=== PATIENT | female | born 1930 | race Caucasian/White ===

== ENCOUNTER 2016-12-07 | Outpatient (CLI) | payer MEDICARE | END 2016-12-07 20:26 | disposition critical access hospital (66) | DX: R53.1 Weakness (principal) | CPT/HCPCS: A0425; A0429 ==

== ENCOUNTER 2016-12-07 20:37 | Inpatient (IN) | payer MEDICARE ==
[2016-12-07] MEDS ORDERED: cefTRIAXone 2 GM in SODIUM CHLORIDE 0.9% MINIBAG 100 ML IV STA (21:16)
[2016-12-07] MEDS ORDERED: SODIUM CHLORIDE 0.9% 1,000 ML IV ONE (21:16)
[2016-12-07] MEDS ORDERED: ACETAMINOPHEN 325 MG TABLET PO STA (21:16)
[2016-12-07] MEDS ORDERED: AZITHROMYCIN INJ 500 MG in SODIUM CHLORIDE 0.9% 250 ML IV STA (21:16)
[2016-12-07] MEDS ORDERED: cefTRIAXone 2 GM VIAL ONE (21:21)
[2016-12-07] MEDS ORDERED: ACETAMINOPHEN 325 MG TABLET PO ONE (21:21)
[2016-12-07] MEDS ORDERED: ONDANSETRON 4 MG/2 ML VIAL IVP PRN (22:26)
[2016-12-07] MEDS ORDERED: SODIUM CHLORIDE FLUSH 0.9% 10 ML SYRINGE IVP PRN (22:26)
[2016-12-07] MEDS ORDERED: ACETAMINOPHEN 325 MG TABLET PO PRN (22:26)
[2016-12-07] MEDS ORDERED: guaiFENesin 600 MG TABLET PO PRN (22:31)
[2016-12-07] MEDS ORDERED: ALBUTEROL NEB 2.5 MG/3 ML INH PRN (22:32)
[2016-12-08] MEDS: SODIUM CHLORIDE 0.9% 1,000 ML IV SCH ×2 (00:35→19:54)
[2016-12-08] MEDS ORDERED: LABETALOL 20 MG/4 ML SYRINGE IVP ONE (05:59)
[2016-12-08] MEDS ORDERED: FUROSEMIDE 20 MG/2 ML VIAL IVP STA (06:18)
[2016-12-08] MEDS: SODIUM CHLORIDE FLUSH 0.9% 10 ML SYRINGE IVP SCH ×3 (08:38→22:33)
[2016-12-08] MEDS: ENOXAPARIN 40 MG/0.4 ML SYRINGE SUBQ SCH (08:39)
[2016-12-08] MEDS: SACCHAROMYCES BOULARDII 250 MG CAPSULE PO SCH ×2 (08:39→17:51)
[2016-12-08] MEDS: POLYETHYLENE GLYCOL 3350 17 GM PACKET PO SCH (08:39)
[2016-12-08] MEDS: PANTOPRAZOLE 40 MG TABLET PO SCH (13:06)
[2016-12-08] MEDS: LEVOTHYROXINE 75 MCG TABLET PO SCH (14:31)
[2016-12-08] MEDS ORDERED: cefTRIAXone 2 GM in SODIUM CHLORIDE 0.9% MINIBAG 100 ML IV SCH ×2 (18:00→21:00)
[2016-12-08] MEDS: AZITHROMYCIN INJ 500 MG in SODIUM CHLORIDE 0.9% 250 ML IV SCH (18:46)
[2016-12-08] MEDS ORDERED: AZITHROMYCIN INJ 500 MG in SODIUM CHLORIDE 0.9% 250 ML IV SCH (22:00)
[2016-12-08] MEDS ORDERED: ASPIRIN CHEW 81 MG TABLET PO STA (22:12)
[2016-12-08] MEDS ORDERED: HEPARIN 5,000 UNIT/ML VIAL IVP ONE (22:15)
[2016-12-08] MEDS ORDERED: FUROSEMIDE 20 MG/2 ML VIAL IVP SCH (22:47)
[2016-12-09] MEDS ORDERED: PANTOPRAZOLE 40 MG TABLET PO SCH (07:00)
[2016-12-09] MEDS: LEVOTHYROXINE 75 MCG TABLET PO SCH (07:01)
[2016-12-09] MEDS: PANTOPRAZOLE 40 MG TABLET PO SCH (07:01)
[2016-12-09] MEDS: IPRATROPIUM/ALBUTEROL 3 ML NEB INH PRN ×2 (08:00→13:12)
[2016-12-09] MEDS ORDERED: CALCIUM GLUCONATE 1,000 MG in SODIUM CHLORIDE 0.9% 50 ML IV ONE (08:00)
[2016-12-09] MEDS: SODIUM CHLORIDE FLUSH 0.9% 10 ML SYRINGE IVP SCH ×3 (08:42→21:05)
[2016-12-09] MEDS ORDERED: CALCIUM CARBONATE CHEW 500 MG TABLET PO SCH (09:00)
[2016-12-09] MEDS: POTASSIUM CHLORIDE 20 MEQ TABLET PO SCH (09:40)
[2016-12-09] MEDS: CHOLECALCIFEROL 400 UNIT TABLET PO SCH (09:50)
[2016-12-09] MEDS: NEUTRA-PHOS 250 MG TABLET PO SCH ×3 (09:51→16:59)
[2016-12-09] MEDS: SACCHAROMYCES BOULARDII 250 MG CAPSULE PO SCH ×2 (09:51→16:59)
[2016-12-09] MEDS: POLYETHYLENE GLYCOL 3350 17 GM PACKET PO SCH (09:53)
[2016-12-09] MEDS: ENOXAPARIN 40 MG/0.4 ML SYRINGE SUBQ SCH (09:53)
[2016-12-09] MEDS: CEFEPIME 2 GM in SODIUM CHLORIDE 0.9% MINIBAG 100 ML IV SCH ×2 (09:58→21:04)
[2016-12-09] MEDS: METOPROLOL TARTRATE 25 MG TABLET PO SCH ×2 (11:05→21:04)
[2016-12-09] MEDS ORDERED: LORazepam 2 MG/ML SYRINGE IVP PRN (11:12)
[2016-12-09] MEDS ORDERED: MORPHINE 2 MG/ML SYRINGE IVP PRN (11:12)
[2016-12-09] MEDS ORDERED: SODIUM BICARBONATE 100 MEQ in DEXTROSE 5% 1,000 ML IV SCH (12:00)
[2016-12-09] MEDS: AZITHROMYCIN INJ 500 MG in SODIUM CHLORIDE 0.9% 250 ML IV SCH (18:33)
[2016-12-09] MEDS ORDERED: methylPREDNISolone SUCCINATE 125 MG/2 ML VIAL IVP SCH ×2 (20:00→22:00)
[2016-12-10] MEDS: methylPREDNISolone SUCCINATE 40 MG/ML VIAL IVP SCH ×3 (05:45→22:15)
[2016-12-10] MEDS: SODIUM CHLORIDE FLUSH 0.9% 10 ML SYRINGE IVP SCH ×3 (05:46→22:16)
[2016-12-10] MEDS: LEVOTHYROXINE 75 MCG TABLET PO SCH (06:01)
[2016-12-10] MEDS: PANTOPRAZOLE 40 MG TABLET PO SCH (06:02)
[2016-12-10] MEDS: CEFEPIME 2 GM in SODIUM CHLORIDE 0.9% MINIBAG 100 ML IV SCH ×2 (09:46→22:15)
[2016-12-10] MEDS: POTASSIUM CHLORIDE 20 MEQ TABLET PO SCH (09:47)
[2016-12-10] MEDS: CHOLECALCIFEROL 400 UNIT TABLET PO SCH (09:47)
[2016-12-10] MEDS: SACCHAROMYCES BOULARDII 250 MG CAPSULE PO SCH ×2 (09:47→16:52)
[2016-12-10] MEDS: CALCIUM CARBONATE CHEW 500 MG TABLET PO SCH ×2 (09:47→22:14)
[2016-12-10] MEDS: ENOXAPARIN 40 MG/0.4 ML SYRINGE SUBQ SCH (09:48)
[2016-12-10] MEDS: NEUTRA-PHOS 250 MG TABLET PO SCH ×3 (09:48→16:52)
[2016-12-10] MEDS: POLYETHYLENE GLYCOL 3350 17 GM PACKET PO SCH (09:49)
[2016-12-10] MEDS: METOPROLOL TARTRATE 25 MG TABLET PO SCH ×2 (09:49→22:14)
[2016-12-10] MEDS: AZITHROMYCIN INJ 500 MG in SODIUM CHLORIDE 0.9% 250 ML IV SCH (19:30)
[2016-12-11] MEDS: methylPREDNISolone SUCCINATE 40 MG/ML VIAL IVP SCH ×3 (06:03→21:33)
[2016-12-11] MEDS: SODIUM CHLORIDE FLUSH 0.9% 10 ML SYRINGE IVP SCH ×3 (06:05→21:34)
[2016-12-11] MEDS: LEVOTHYROXINE 75 MCG TABLET PO SCH (06:18)
[2016-12-11] MEDS: PANTOPRAZOLE 40 MG TABLET PO SCH (06:18)
[2016-12-11] MEDS: IPRATROPIUM/ALBUTEROL 3 ML NEB INH PRN ×2 (09:00→13:15)
[2016-12-11] MEDS: CEFEPIME 2 GM in SODIUM CHLORIDE 0.9% MINIBAG 100 ML IV SCH ×2 (09:24→21:34)
[2016-12-11] MEDS: POTASSIUM CHLORIDE 20 MEQ TABLET PO SCH (09:26)
[2016-12-11] MEDS: NEUTRA-PHOS 250 MG TABLET PO SCH ×3 (09:32→17:18)
[2016-12-11] MEDS: METOPROLOL TARTRATE 25 MG TABLET PO SCH ×2 (09:37→21:35)
[2016-12-11] MEDS: POLYETHYLENE GLYCOL 3350 17 GM PACKET PO SCH ×2 (09:39→13:05)
[2016-12-11] MEDS: CALCIUM CARBONATE CHEW 500 MG TABLET PO SCH ×2 (09:39→21:35)
[2016-12-11] MEDS: DOCUSATE SODIUM 250 MG CAPSULE PO ONE ×2 (09:39→12:54)
[2016-12-11] MEDS: CHOLECALCIFEROL 400 UNIT TABLET PO SCH (09:39)
[2016-12-11] MEDS: SACCHAROMYCES BOULARDII 250 MG CAPSULE PO SCH ×2 (09:39→17:18)
[2016-12-11] MEDS: SENNA 8.6 MG TABLET PO ONE ×2 (09:39→12:57)
[2016-12-11] MEDS: ENOXAPARIN 40 MG/0.4 ML SYRINGE SUBQ SCH (09:40)
[2016-12-11] MEDS: AZITHROMYCIN INJ 500 MG in SODIUM CHLORIDE 0.9% 250 ML IV SCH (19:07)
[2016-12-11] MEDS ORDERED: ASPIRIN CHEW 81 MG TABLET ONE (20:18)
[2016-12-11] MEDS ORDERED: ASPIRIN CHEW 81 MG TABLET PO SCH (20:21)
[2016-12-12] MEDS: PANTOPRAZOLE 40 MG TABLET PO SCH (06:40)
[2016-12-12] MEDS: SODIUM CHLORIDE FLUSH 0.9% 10 ML SYRINGE IVP SCH ×3 (06:41→21:36)
[2016-12-12] MEDS: LEVOTHYROXINE 75 MCG TABLET PO SCH (06:41)
[2016-12-12] MEDS ORDERED: methylPREDNISolone SUCCINATE 40 MG/ML VIAL IVP SCH (08:00)
[2016-12-12] MEDS: SACCHAROMYCES BOULARDII 250 MG CAPSULE PO SCH ×2 (08:48→16:59)
[2016-12-12] MEDS: NEUTRA-PHOS 250 MG TABLET PO SCH ×3 (08:48→16:59)
[2016-12-12] MEDS: POTASSIUM CHLORIDE 20 MEQ TABLET PO SCH (08:48)
[2016-12-12] MEDS: CHOLECALCIFEROL 400 UNIT TABLET PO SCH (08:49)
[2016-12-12] MEDS: ASPIRIN EC 81 MG TABLET PO SCH (08:49)
[2016-12-12] MEDS: METOPROLOL TARTRATE 25 MG TABLET PO SCH ×2 (08:49→21:21)
[2016-12-12] MEDS: ENOXAPARIN 40 MG/0.4 ML SYRINGE SUBQ SCH (08:50)
[2016-12-12] MEDS: CALCIUM CARBONATE CHEW 500 MG TABLET PO SCH ×2 (08:50→21:28)
[2016-12-12] MEDS: POLYETHYLENE GLYCOL 3350 17 GM PACKET PO SCH (08:50)
[2016-12-12] MEDS ORDERED: ASPIRIN CHEW 81 MG TABLET PO SCH (09:00)
[2016-12-12] MEDS ORDERED: AZITHROMYCIN 250 MG TABLET PO SCH (17:00)
[2016-12-12] MEDS ORDERED: A & D OINTMENT 5 GM PACKET TOP ONE (20:11)
[2016-12-12] MEDS: predniSONE 20 MG TABLET PO SCH (21:29)
[2016-12-12] MEDS: LISINOPRIL 5 MG TABLET PO SCH (21:29)
[2016-12-13] MEDS ORDERED: hydrALAZINE INJ 20 MG/ML VIAL IVP STA (03:12)
[2016-12-13] MEDS: SODIUM CHLORIDE FLUSH 0.9% 10 ML SYRINGE IVP SCH (06:41)
[2016-12-13] MEDS: LEVOTHYROXINE 75 MCG TABLET PO SCH (06:41)
[2016-12-13] MEDS: PANTOPRAZOLE 40 MG TABLET PO SCH (06:41)
[2016-12-13] MEDS: POLYETHYLENE GLYCOL 3350 17 GM PACKET PO SCH (08:39)
[2016-12-13] MEDS: ENOXAPARIN 40 MG/0.4 ML SYRINGE SUBQ SCH (08:41)
[2016-12-13] MEDS: NEUTRA-PHOS 250 MG TABLET PO SCH ×2 (08:41→12:10)
[2016-12-13] MEDS: SACCHAROMYCES BOULARDII 250 MG CAPSULE PO SCH (08:42)
[2016-12-13] MEDS: LISINOPRIL 5 MG TABLET PO SCH (08:42)
[2016-12-13] MEDS: POTASSIUM CHLORIDE 20 MEQ TABLET PO SCH (08:42)
[2016-12-13] MEDS: CHOLECALCIFEROL 400 UNIT TABLET PO SCH (08:42)
[2016-12-13] MEDS: ASPIRIN EC 81 MG TABLET PO SCH (08:43)
[2016-12-13] MEDS: METOPROLOL TARTRATE 25 MG TABLET PO SCH (08:43)
[2016-12-13] MEDS ORDERED: AZITHROMYCIN 250 MG TABLET PO SCH (09:00)
[2016-12-13] MEDS: predniSONE 20 MG TABLET PO SCH (09:28)
[2016-12-13] MEDS ORDERED: CALCIUM CARBONATE CHEW 500 MG TABLET PO SCH (19:00)
== END 2016-12-13 13:30 | DRG 193 ==
DX: J18.9 Pneumonia, unspecified organism (principal); J96.01 Acute respiratory failure with hypoxia; C91.10 Chronic lymphocytic leukemia of B-cell type not having achieved remission; I48.91 Unspecified atrial fibrillation; E03.9 Hypothyroidism, unspecified; Z90.710 Acquired absence of both cervix and uterus; Z85.828 Personal history of other malignant neoplasm of skin; Z88.2 Allergy status to sulfonamides; K21.9 Gastro-esophageal reflux disease without esophagitis; I11.0 Hypertensive heart disease with heart failure; I50.9 Heart failure, unspecified

== ENCOUNTER 2017-02-21 22:04 | Outpatient (CLI) | payer MEDICARE | END 2017-02-21 22:05 | disposition critical access hospital (66) | LOC: EMS 22:04 | PROVIDERS: ATTEND Surgery | DX: M25.512 Pain in left shoulder (principal); W18.30XA Fall on same level, unspecified, initial encounter; W22.8XXA Striking against or struck by other objects, initial encounter; Y92.199 Unspecified place in other specified residential institution as the place of occurrence of the external cause | CPT/HCPCS: A0425; A0429 ==

== ENCOUNTER 2017-02-21 22:19 | Emergency (ER) | payer MEDICARE ==
--- NOTE | 2017-02-21 22:43 | ED Physician Documentation ---
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 She fell and c/o left shoulder pain. The cause of the fall is not clear, but patient denies LOC, denies head injury. Review of Systems Cardiac: reports: Reviewed and negative GI: reports: Reviewed and negative Musculoskeletal: reports: Joint pain (left shoulder). 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 Derm: Skin cancer surgery - Present Medications Home Medications: Ambulatory Orders Medication Instructions Recorded Confirmed Calcium Carbonate/Vitamin D3 1 each PO DAILY 02/22/13 05/31/16 [Os-Arley 500-Vit D3 200 Caplet] Levothyroxine [Synthroid] 75 mcg PO DAILY 02/22/13 12/08/16 Omeprazole [PriLOSEC] 20 mg PO DAILY 06/25/13 05/31/16 Oxybutynin Chloride [Oxybutynin 10 mg PO DAILY 06/25/13 12/08/16 Chloride ER] Ipratropium [place] 1 spray NS QID 12/08/16 12/08/16 Acetaminophen [Tylenol] 650 mg PO Q4HR PRN #0 tablet 12/12/16 Azithromycin 500 mg PO DAILY #5 tablet 12/12/16 Calcium Carbonate [Tums (Calcium 500 mg PO BID tablet 12/12/16 Carbonate 500mg)] Metoprolol Tartrate 12.5 mg PO BID 30 Days 12/12/16 predniSONE [Deltasone] 10 mg PO [id number] #42 tab 12/12/16 - Allergies Allergies/Adverse Reactions: Allergies Allergy/AdvReac Type Severity Reaction Status Date / Time penicillin V potassium * Allergy Intermediate Hives Verified 10/21/15 18:54 [From Pen-Vee K] Sulfa (Sulfonamide Allergy Intermediate Hives Verified 10/21/15 18:54 Antibiotics) allopurinol Allergy Unknown unknown Verified 10/21/15 18:54 - Social History Does the pt smoke?: No Smoking Status: Never smoker Does the pt drink ETOH?: No Does the pt have substance abuse?: No - Immunizations Immunizations are current?: Yes PD ED PE NORMAL - Vitals Vital signs reviewed: Yes - General General: Alert and oriented X 3, No acute distress, Well developed/nourished - HEENT HEENT: PERRL, EOMI - Neck Neck: No bony TTP - Cardiac Cardiac: RRR, No murmur - Respiratory Respiratory: No respiratory distress, Clear bilaterally - Neuro Neuro: Alert and oriented X 3, No motor deficit, No sensory deficit PD ED PE EXPANDED - Extremities Extremities: Tenderness, Limited ROM, Left shoulder Results - Vitals Vitals: Oxygen O2 Source [With Activity] 7 L 94% after walking 30' O2 Source Room air - Rads (name of study) left shoulder xrays Radiology: Prelim report reviewed, See rad report PD MEDICAL DECISION MAKING - ED course Complexity details: reviewed results, re-evaluated patient, considered differential, d/w patient, d/w family Departure - Departure Disposition: 01 Home, Self Care Clinical Impression: Fall, Clavicle fracture Condition: Good Instructions: ED Fx Clavicle, ED Sling Follow-Up: Maico Rodriguez MD [Primary Care Provider] - Daquan Naik MD [Provider Admit Priv/Credential] - Discharge Date/Time: 02/22/17 01:20
--- NOTE | 2017-02-22 00:12 | XRAY Preliminary Report ---
Exam: XR Shoulder 3 View LT IMPRESSION: 1. Nondisplaced distal left clavicle fracture. 2. Normal alignment of the left acromioclavicular and glenohumeral joints. [facility] SITE ID: [id number]
--- NOTE | 2017-02-22 00:28 | XRAY Report ---
EXAM: LEFT SHOULDER RADIOGRAPHY EXAM DATE: 02/21/2017 11:11 PM. CLINICAL HISTORY: Fall, pain. COMPARISON: None. TECHNIQUE: 3 views. FINDINGS: Bones: Osteopenic patient. Nondisplaced distal left clavicle fracture noted. Joints: The glenohumeral and acromioclavicular joints are normal. Soft tissues: The visualized hemithorax is unremarkable. No soft tissue swelling. IMPRESSION: 1. Nondisplaced distal left clavicle fracture. 2. Normal alignment of the left acromioclavicular and glenohumeral joints. [facility] Referring Provider Line: [phone] SITE ID: [id number]
[2017-02-22] MEDS ORDERED: ACETAMINOPHEN 325 MG TABLET PO ONE (01:02)
[2017-02-22] MEDS ORDERED: cloNIDine 0.1 MG TABLET ONE (01:03)
[2017-02-22 01:08] VITALS: BP 212/76
[2017-02-22] MEDS: cloNIDine 0.1 MG TABLET PO STA (01:09)
[2017-02-22] MEDS: ACETAMINOPHEN 325 MG TABLET PO STA (01:09)
== END 2017-02-22 01:20 | disposition home or self-care (01) ==
LOC: EDUNIT# → ED 22:19
DX: S42.035A Nondisplaced fracture of lateral end of left clavicle, initial encounter for closed fracture (principal); W01.0XXA Fall on same level from slipping, tripping and stumbling without subsequent striking against object, initial encounter; Y92.019 Unspecified place in single-family (private) house as the place of occurrence of the external cause; I48.91 Unspecified atrial fibrillation; K21.9 Gastro-esophageal reflux disease without esophagitis
CPT/HCPCS: 99283

== ENCOUNTER 2017-07-16 03:30 | Outpatient (CLI) | payer MEDICARE | END 2017-07-16 03:31 | disposition critical access hospital (66) | LOC: EMS 03:30 | PROVIDERS: ATTEND Surgery | DX: M79.672 Pain in left foot (principal); W18.39XA Other fall on same level, initial encounter; Y92.032 Bedroom in apartment as the place of occurrence of the external cause | CPT/HCPCS: A0425; A0429 ==

== ENCOUNTER 2017-07-16 03:52 | Emergency (ER) | payer MEDICARE ==
--- NOTE | 2017-07-16 04:03 | ED Physician Documentation ---
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) Timing - details: Abrupt onset Pain level now: 2 Improved by: Rest Worsened by: Moving, Palpating Associated symptoms: Swelling, Discolored Recently seen: Not recently seen - Additional information Additional information: fell from wheelchair while attempting transfer to bathroom, sustained left foot injury and c/o left foot pain Review of Systems Musculoskeletal: reports: Extremity pain, Extremity swelling PD PAST MEDICAL HISTORY - Past Medical History Past Medical History: Yes Cardiovascular: Hypertension, High cholesterol Respiratory: Pneumonia Neuro: Headache/migraine, Fainting Endocrine/Autoimmune: HyPOthyroidism GI: GERD : Nocturia, Frequency HEENT: None Musculoskeletal: Fatigue - Past Surgical History Past Surgical History: No 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 HEENT: Tonsil/Adenoidectomy Derm: Skin cancer surgery - Present Medications Home Medications: Ambulatory Orders Medication Instructions Recorded Confirmed Levothyroxine [Synthroid] 75 mcg PO DAILY 02/22/13 07/16/17 Omeprazole [PriLOSEC] 20 mg PO DAILY 06/25/13 07/16/17 Oxybutynin Chloride [Oxybutynin 5 mg PO DAILY 06/25/13 07/16/17 Chloride ER] Acetaminophen [Tylenol] 650 mg PO Q4HR PRN 07/11/17 07/16/17 Calcium Carbonate [Tums (Calcium 500 mg PO DAILY 07/11/17 07/16/17 Carbonate 500mg)] Cholecalciferol (Vitamin D3) 2,000 unit PO DAILY 07/11/17 07/16/17 [Vitamin D3] Hydrochlorothiazide 25 mg PO DAILY 07/11/17 07/16/17 Lisinopril 20 mg PO DAILY PM 07/11/17 07/16/17 Metoprolol Succinate 25 mg PO DAILY 07/11/17 07/16/17 Nystatin [Nystop] 0 gm TOP BID 07/11/17 07/16/17 - Allergies Allergies/Adverse Reactions: Allergies Allergy/AdvReac Type Severity Reaction Status Date / Time penicillin V potassium * Allergy Intermediate Hives Verified 07/16/17 04:03 [From Pen-Vee K] Sulfa (Sulfonamide Allergy Intermediate Hives Verified 07/16/17 04:03 Antibiotics) allopurinol Allergy Unknown unknown Verified 07/16/17 04:03 - Social History Does the pt smoke?: No Smoking Status: Never smoker Does the pt drink ETOH?: No Does the pt have substance abuse?: No - Immunizations Immunizations are current?: Yes PD ED PE NORMAL - Vitals Vital signs reviewed: Yes - General General: Alert and oriented X 3, No acute distress, Well developed/nourished PD ED PE EXPANDED - Extremities Extremities: Tenderness, Swelling, Bruising, Other (left foot swelling, tenderness, bruising, and abrasion midfoot, dorsal surface) Results - Vitals Vitals: Oxygen O2 Source [With Activity] 7 L 94% after walking 30' O2 Source Room air - Rads (name of study) left foot xrays Radiology: Prelim report reviewed, See rad report PD MEDICAL DECISION MAKING - ED course Complexity details: reviewed results, re-evaluated patient, considered differential, d/w patient, d/w family Departure - Departure Disposition: 01 Home, Self Care Clinical Impression: Foot sprain Condition: Good Instructions: ED Sprain Foot Discharge Date/Time: 07/16/17 06:07
--- NOTE | 2017-07-16 04:39 | XRAY Preliminary Report ---
Exam: XR Foot 3 View LT IMPRESSION: Osteopenic left foot without displaced fracture seen. [facility] SITE ID: [id number]
--- NOTE | 2017-07-16 04:47 | XRAY Report ---
EXAM: LEFT FOOT RADIOGRAPHY EXAM DATE: 07/16/2017 04:29 AM. CLINICAL HISTORY: Left foot injury, tenderness, pain. COMPARISON: None. TECHNIQUE: 3 views. FINDINGS: Bones: Osteopenia. No displaced fractures or bone lesions. Joints: Normal. No subluxations. Soft Tissues: Normal. No soft tissue swelling. IMPRESSION: Osteopenic left foot without displaced fracture seen. [facility] Referring Provider Line: [phone] SITE ID: [id number]
[2017-07-16] MEDS ORDERED: BACITRACIN OINT TOP STA (05:13)
[2017-07-16] MEDS ORDERED: ACETAMINOPHEN 325 MG TABLET PO STA (05:13)
[2017-07-16] MEDS ORDERED: BACITRACIN OINT TOP ONE (05:15)
[2017-07-16] MEDS ORDERED: ACETAMINOPHEN 325 MG TABLET PO ONE (05:24)
[2017-07-16 06:07] VITALS: BP 164/79
== END 2017-07-16 06:07 | disposition home or self-care (01) ==
LOC: EDUNIT# → ED 03:52
DX: S93.602A Unspecified sprain of left foot, initial encounter (principal); W05.0XXA Fall from non-moving wheelchair, initial encounter; Y93.89 Activity, other specified; I10 Essential (primary) hypertension; E78.00 Pure hypercholesterolemia, unspecified; E03.9 Hypothyroidism, unspecified
CPT/HCPCS: 73630; 99283; A9270